=== PATIENT | male | born 2000 | race Two or more races ===

== ENCOUNTER 2024-06-16 18:49 | Emergency (ER) | payer MEDICAID ==
[~2024-06-16] VITALS: Ht 172.7 cm; Wt 85.0 kg
[2024-06-16] MEDS ORDERED: AMOX-457 PO (20:16)
[2024-06-16 20:29] VITALS: BP 129/71; PULSE 79; RESP 18; TEMP 97.3; O2SAT 99
[2024-06-16] MEDS: AMOX TR/POT CLAV 875 MG/125 MG TABLET PO ONE (20:31)
== END 2024-06-16 20:34 | disposition home or self-care (01) ==
LOC: EMS 18:49
DX: S31.159A Open bite of abdominal wall, unspecified quadrant without penetration into peritoneal cavity, initial encounter (principal); S51.051A Open bite, right elbow, initial encounter; W54.0XXA Bitten by dog, initial encounter; Y93.89 Activity, other specified; Y92.89 Other specified places as the place of occurrence of the external cause; Y99.8 Other external cause status
CPT/HCPCS: 99283; Z7502